=== PATIENT | female | born 1980 | race Caucasian/White ===

== ENCOUNTER 2016-08-05 20:25 | Emergency (ER) | payer OTHER ==
[~2016-08-05] VITALS: Ht 170.2 cm; Wt 136.3 kg
[2016-08-05] MEDS ORDERED: FLEXERIL10 MG PO (21:06)
[2016-08-05 21:16] VITALS: BP 105/87
== END 2016-08-05 21:16 | disposition home or self-care (01) ==
LOC: EME 20:25
DX: S16.1XXA Strain of muscle, fascia and tendon at neck level, initial encounter (principal); M62.838 Other muscle spasm; J18.9 Pneumonia, unspecified organism
CPT/HCPCS: 99281; 99283